=== PATIENT | female | born 1940 | race Caucasian/White ===

== ENCOUNTER → 2017-12-01 11:30 | Outpatient (CLI) | payer MEDICARE, BC, SELFPAY ==
--- NOTE | 2017-12-01 | DI.MRI.S_ITS ---
BREAST MRI OF BOTH BREASTS - POST LUMPECTOMY: 12/01/2017 CLINICAL: Left breast cancer. INDICATIONS: LEFT BREAST CANCER TECHNIQUE: The patient was placed prone in a dedicated breast imaging coil. Precontrast axial STIR and 3D FLASH without fat saturation sequences were obtained. Both before and after bolus injection of contrast, sequential 1-minute axial 3D FLASH with fat saturation sequences for 3 time points, with subtraction images and maximum intensity projections (MIP's) generated. Delayed sagittal FLASH images with fat saturation were also obtained. Computer-aided detection, including computer algorithm analysis of MRI image data for lesion detection and characterization, pharmacokinetic analysis, with further physician review for interpretation, was performed. COMPARISON: [facility], , MM DIAGNOSTIC MAMMO BILAT 2D, 11/11/2015, 9:25. [facility], , US LEFT BREAST, 11/08/2017, 15:33. [facility], MM DIAGNOSTIC MAMMO BILAT 2D, 11/07/2017, 13:12. [facility], WIRE LOCALIZATION EACH LESION, 11/08/2012, 7:57. FINDINGS: Image quality: Excellent. There is minimal background parenchymal enhancement. Right breast: Patient is status post lumpectomy at 9:00 within the right breast at an anterior depth. Fat necrosis is present within the operative bed. There is partial enhancement along the superior margin of the operative bed also consistent with fat necrosis. No suspicious enhancement or mass lesions. Skin thickening and increased trabeculation is noted within the right breast presumably secondary to radiation changes. Left breast: Surgical clips are present within the left breast at 11:00. A T2 hyperintense 6 x 5 mm circumscribed cystic lesion is present within the left breast at 4:00 at a middle depth. This demonstrates trace enhancement on the postcontrast images. This corresponds with mammography and sonographic findings. Miscellaneous: No axillary adenopathy. IMPRESSION: BENIGN 1. Bilateral postsurgical change as above. 2. Subcentimeter left fibroadenoma which corresponds with the mammographic and sonographic findings. 3. No evidence for malignancy. A 1 year screening mammogram is recommended. This exam was interpreted at Station ID: [id number]. Electronically Signed By: Roxy patterson/:12/01/2017 17:19:36 letter sent: Normal Exam ACR BI-RADS Category 2: Benign Finding(s) 5580K
[2017-12-01 12:07] LABS: Estimated Glomerular Filt Rate 39.7 mL/min (>60)
== END ==
PROVIDERS: PCP Family Medicine; Visit Provider Surgery
DX: D24.2 Benign neoplasm of left breast (principal); Z85.3 Personal history of malignant neoplasm of breast
CPT/HCPCS: 36415; 82565; A9579; C8908

== ENCOUNTER → 2018-01-08 08:49 | Outpatient (CLI) | payer MEDICARE, BC, SELFPAY ==
--- NOTE | 2018-01-08 | PATH_ITS ---
[facility] Accession Number: [id number] . 01 Material submitted: . LEFT BREAST . 01 Clinical history: . MASS 4:00 3CM FN . 02 Diagnosis: Biopsy Left Breast: Benign breast tissue with complex epithelial cyst, negative for atypia. MRV/01/10/2018 . 02 Electronically signed: . Dmitriy Marcus MD, Pathologist NPI- [id number] . 01 Gross description: . Received in formalin, labeled BX breast perc w vac device, are multiple fragments of yellow adipose tissue (2.5 x 2.3 x 0.2 cm in aggregate. Entirely submitted in cassette A1. Note: Approximate total fixation time in formalin-36 hours 30 minutes, calculated using a collection date of 01/08/2018 with a time in fixative of 1059. ([id number]) /MRV . 02 Pathologist provided ICD-10: N60.02 . 02 CPT . 975197 Performed at: 01 [facility] [address] [facility] [place], [place], [place] [id number] MD Lucian Del Rosario MD Phone: [phone] Performed at: 02 [facility] [address] [place], [place] [id number] MD Jarrod Garcia MD Phone: [phone]
--- NOTE | 2018-01-08 | DI.MG.S_ITS ---
UNILATERAL LEFT DIGITAL DIAGNOSTIC MAMMOGRAM POST-NEEDLE BIOPSY: 01/08/2018 CLINICAL: Post clip placement. Personal history of breast cancer. Comparison is made to exams dated: 11/07/2017 mammogram, 11/14/2016 mammogram, and 11/11/2015 mammogram - [facility]. The tissue of the left breast is predominantly fatty. There is a marker clip in the appropriate position in the left breast at 4 o'clock anterior depth. This marker clip placement is at biopsy site. IMPRESSION: POST PROCEDURE MAMMOGRAM FOR MARKER PLACEMENT There was a successful marker clip placement in the left breast anterior depth. This exam was interpreted at Station ID: [id number]. NOTE: For mammograms, a report in lay terms will be sent to the patient. Approximately 15% of breast malignancies will not be visualized mammographically. In the management of a palpable breast mass, a negative mammogram must not discourage biopsy of a clinically suspicious lesion. Electronically Signed By: Delano lovelace/kim:01/10/2018 11:36:04 ACR BI-RADS Category Post-procedure mammogram for marker placement
--- NOTE | 2018-01-08 08:51 | DI.US.S_ITS ---
PROCEDURE: US BX BREAST PERC W VAC DEVICE COMPARISON: None. INDICATIONS: LEFT BREAST MASS FINDINGS: Preprocedural ultrasound shows a small anechoic area with through acoustic enhancement at 4:00 position of left breast 3 cm from the nipple line with no significant tumor vascularity. Outer portion of left breast was prepped and draped in standard sterile fashion. Superficial and deep left breast tissue was anesthetized with 1% lidocaine. Under ultrasound guidance, vacuum assisted biopsy of the above-mentioned anechoic lesion was performed. 6 passes were done through the lesion. Specimen was sent to pathology for evaluation. A marker clip was placed at the site of the biopsy after the procedure. Hemostasis was achieved. Post procedural mammogram shows marker clip in the outer and slightly lower quadrant of left breast. Patient was discharged home without immediate complication. IMPRESSION: Technically successful ultrasound-guided left breast biopsy. Dictated by: Delano Prado M.D. on 01/08/2018 at 12:33 Approved by: Delano Prado M.D. on 01/08/2018 at 12:40
== END ==
PROVIDERS: PCP Obstetrics & Gynecology; Visit Provider Surgery
DX: R92.8 Other abnormal and inconclusive findings on diagnostic imaging of breast (principal); N60.02 Solitary cyst of left breast
CPT/HCPCS: 19083; 77065; 88305

== ENCOUNTER → 2018-11-12 08:38 | Outpatient (CLI) | payer MEDICARE, BC, SELFPAY ==
--- NOTE | 2018-11-12 08:39 | DI.RAD.S_ITS ---
This blank DEXA report has been sent in error by the PACS system. The correct and complete report will be forthcoming in 1-2 days. Thank you for your patience and understanding. Dictated by: Manuel Morris M.D. on 11/12/2018 at 9:53 Approved by: Riccardo Ambrose M.D. on 03/19/2019 at 9:36
== END ==
PROVIDERS: PCP Student in an Organized Health Care Education/Training Program; Visit Provider Student in an Organized Health Care Education/Training Program
DX: M85.852 Other specified disorders of bone density and structure, left thigh (principal); M06.9 Rheumatoid arthritis, unspecified; Z78.0 Asymptomatic menopausal state; Z82.62 Family history of osteoporosis; Z85.3 Personal history of malignant neoplasm of breast
CPT/HCPCS: 77080

== ENCOUNTER → 2019-01-01 10:43 | Outpatient (CLI) | payer MEDICARE, BC, SELFPAY ==
--- NOTE | 2019-01-01 10:46 | DI.MG.S_ITS ---
BILATERAL DIGITAL SCREENING MAMMOGRAM 3D/2D WITH CAD: 01/01/2019 CLINICAL: Routine screening. Personal history of right breast cancer. Family history of breast cancer. Comparison is made to exams dated: 01/08/2018 mammogram - [facility], 11/07/2017 mammogram, and 11/14/2016 mammogram - [facility]. The tissue of both breasts is predominantly fatty. Current study was also evaluated with a Computer Aided Detection (CAD) system. There are benign post operative findings in both breasts. There also are benign calcifications in the right breast. No significant masses, calcifications, or other findings are seen in either breast. There has been no significant interval change. IMPRESSION: There is no mammographic evidence of malignancy. A 1 year screening mammogram is recommended. This exam was interpreted at Station ID: [id number]. NOTE: For mammograms, a report in lay terms will be sent to the patient. Approximately 15% of breast malignancies will not be visualized mammographically. In the management of a palpable breast mass, a negative mammogram must not discourage biopsy of a clinically suspicious lesion. Electronically Signed By: Roxy patterson/kim:01/01/2019 12:29:47 letter sent: Normal Exam ACR BI-RADS Category 2: Benign Finding(s) [id number]
== END ==
PROVIDERS: Family Provider Student in an Organized Health Care Education/Training Program; PCP Student in an Organized Health Care Education/Training Program; Visit Provider Obstetrics & Gynecology
DX: Z12.31 Encounter for screening mammogram for malignant neoplasm of breast (principal); Z85.3 Personal history of malignant neoplasm of breast; Z80.3 Family history of malignant neoplasm of breast
CPT/HCPCS: 77063; 77067

== ENCOUNTER → 2019-11-20 12:20 | Outpatient (CLI) | payer MEDICARE, BC, SELFPAY | PROVIDERS: Family Provider Student in an Organized Health Care Education/Training Program; PCP Student in an Organized Health Care Education/Training Program; Referring Provider Student in an Organized Health Care Education/Training Program; Visit Provider Student in an Organized Health Care Education/Training Program | DX: M85.852 Other specified disorders of bone density and structure, left thigh (principal); Z78.0 Asymptomatic menopausal state; M06.9 Rheumatoid arthritis, unspecified; Z85.3 Personal history of malignant neoplasm of breast | CPT/HCPCS: 77080 ==

== ENCOUNTER → 2020-01-17 10:28 | Outpatient (CLI) | payer MEDICARE, BC, SELFPAY ==
--- NOTE | 2020-01-17 | DI.MG.S_ITS ---
BILATERAL DIGITAL SCREENING MAMMOGRAM 3D/2D WITH CAD POST LUMPECTOMY: 01/17/2020 CLINICAL: Routine screening. Personal history of right breast cancer. Comparison is made to exams dated: 01/01/2019 mammogram, 12/01/2017 breast MRI [facility], 11/07/2017 mammogram, and 11/14/2016 mammogram - [facility]. The tissue of both breasts is predominantly fatty. Current study was also evaluated with a Computer Aided Detection (CAD) system. There are benign calcifications in the right breast. There also are benign post operative findings in both breasts. No significant masses, calcifications, or other findings are seen in either breast. There has been no significant interval change. IMPRESSION: BENIGN There is no mammographic evidence of malignancy. A 1 year screening mammogram is recommended. This exam was interpreted at Station ID: [id number]. NOTE: For mammograms, a report in lay terms will be sent to the patient. Approximately 15% of breast malignancies will not be visualized mammographically. In the management of a palpable breast mass, a negative mammogram must not discourage biopsy of a clinically suspicious lesion. Electronically Signed By: Sudheer stover/kim:01/17/2020 13:04:03 copy to: Ketty Condon letter sent: Normal Exam ACR BI-RADS Category 2: Benign Finding(s) [id number]
--- NOTE | 2020-01-17 11:45 | DI.RAD.S_ITS ---
PROCEDURE: XR KNEE LT 3V INDICATIONS: Knee pain TECHNIQUE: There has been [id number] progression of previously present moderately severe degenerative knee joint osteoarthritis seen on the frontal view as osteophytic spurring and height reduction at the medial and and lateral compartments. No effusion or loose body is seen. The area of trabecular thickening beneath the lateral femoral condyle within the tibial plateau is stable over time views of the knee were acquired. COMPARISON: [facility], , KNEE 3V LEFT, 06/17/2010, 10:06. FINDINGS: Bones: No fractures or dislocations. No suspicious bony lesions. Soft tissues: No joint effusion. No suspicious soft tissue calcifications. IMPRESSION: Mild interval worsening of chronic degenerative osteoarthritis at the medial and lateral compartments of the left knee, no acute trauma found. Dictated by: Riccardo Ambrose M.D. on 01/17/2020 at 13:13 Approved by: Riccardo Ambrose M.D. on 01/17/2020 at 13:15
== END ==
PROVIDERS: Family Provider Student in an Organized Health Care Education/Training Program; PCP Student in an Organized Health Care Education/Training Program; Referring Provider Student in an Organized Health Care Education/Training Program; Visit Provider Student in an Organized Health Care Education/Training Program
DX: Z12.31 Encounter for screening mammogram for malignant neoplasm of breast (principal); Z85.3 Personal history of malignant neoplasm of breast; M25.562 Pain in left knee; M17.12 Unilateral primary osteoarthritis, left knee
CPT/HCPCS: 73562; 77063; 77067

== ENCOUNTER → 2021-01-07 15:40 | Outpatient (CLI) | payer MEDICARE, BC, SELFPAY ==
[2021-01-07 16:16] LABS: Add Manual Diff / Slide Review NO; Basophils Absolute Auto 100 /uL (0-100); Basophils Percent Auto 0.7 % (0-2); Eosinophils Absolute Auto 100 /uL (0-450); Hematocrit 32.6 % (36-46); Hemoglobin 10.7 g/dL (12.0-16.0); Lymphocytes Absolute Auto 1900 /uL (1100-4500); Lymphocytes Percent Auto 23.8 % (25-40); Mean Corpuscular HGB Conc 32.7 % (30-36); Mean Corpuscular Hemoglobin 31.9 PG (26-34); Mean Corpuscular Volume 97.5 fL (80-100); Monocytes Absolute Auto 500 /uL (0-900); Monocytes Percent Auto 6.8 % (3-14); Neutrophils Absolute Auto 5300 /uL (1500-7000); Neutrophils Percent Auto 67.7 % (50-75); Platelet Count 230 X10^3/uL (150-400); Red Blood Cell Count 3.34 X10^6/uL (4.0-5.2); Red Cell Distribution Width 14.2 % (11.6-14.8); White Blood Cell Count 7.8 X10^3/uL (4.5-11.0)
[2021-01-07 16:25] LABS: Alanine Aminotransferase 15 IU/L (<35); Albumin 4.8 g/dL (3.5-5.0); Albumin Globulin Ratio 1.8 (1.0-2.8); Alkaline Phosphatase 50 U/L (38-126); Aspartate Aminotransferase 27 IU/L (14-36); BUN Creatinine Ratio 22.8 (6-22); Bilirubin Total 0.2 mg/dL (0.2-1.3); Blood Urea Nitrogen 36 mg/dL (7-17); Calcium 9.5 mg/dL (8.4-10.2); Carbon Dioxide 20 mmol/L (22-32); Chloride 108 mmol/L (98-107); Estimated Glomerular Filt Rate 31.5 mL/min (>60); Globulin 2.6 g/dL (1.7-4.1); Glucose 96 mg/dL (80-110); HEMOLYSIS < 15 (0-50); Potassium 4.4 mmol/L (3.4-5.1); Sodium 138 mmol/L (137-145); Total Protein 7.4 g/dL (6.3-8.2)
[2021-01-07 16:42] LABS: Vitamin D 25 Hydroxy (D3) 116 ng/mL (30.0-100.0)
[2021-01-07 16:57] LABS: TSH w/ Reflex to FT4 0.89 uIU/mL (0.47-4.68)
[2021-01-07 17:14] LABS: Vitamin B12 818 pg/mL (239-931)
== END ==
PROVIDERS: Family Provider Student in an Organized Health Care Education/Training Program; PCP Student in an Organized Health Care Education/Training Program; Referring Provider Student in an Organized Health Care Education/Training Program; Visit Provider Student in an Organized Health Care Education/Training Program
DX: M81.0 Age-related osteoporosis without current pathological fracture (principal); E03.9 Hypothyroidism, unspecified; I10 Essential (primary) hypertension; R41.82 Altered mental status, unspecified
CPT/HCPCS: 36415; 80053; 82306; 82607; 84443; 85025

== ENCOUNTER → 2022-01-19 10:02 | Outpatient (CLI) | payer MEDICARE, BC, SELFPAY ==
[2022-01-19 11:16] LABS: Blood Urea Nitrogen 25 mg/dL (7-17); Calcium 9.3 mg/dL (8.4-10.2); Carbon Dioxide 24 mmol/L (22-32); Chloride 105 mmol/L (98-107); Cholesterol 185 mg/dL (140-199); Estimated Glomerular Filt Rate 38 mL/min (>60); Glucose 101 mg/dL (80-110); HDL Cholesterol 59 mg/dL (40-60); HEMOLYSIS < 15 (0-50); LDL Cholesterol Calculated 105 mg/dL (<100); Potassium 4.7 mmol/L (3.4-5.1); Sodium 138 mmol/L (137-145); Triglycerides 105 mg/dL (35-150); Uric Acid 4.3 mg/dL (2.5-6.2)
[2022-01-19 11:33] LABS: Vitamin D 25 Hydroxy (D3) 86.5 ng/mL (30.0-100.0)
[2022-01-19 11:52] LABS: TSH w/ Reflex to FT4 0.84 uIU/mL (0.47-4.68)
== END ==
PROVIDERS: Family Provider Student in an Organized Health Care Education/Training Program; PCP Student in an Organized Health Care Education/Training Program; Referring Provider Student in an Organized Health Care Education/Training Program; Visit Provider Student in an Organized Health Care Education/Training Program
DX: E03.9 Hypothyroidism, unspecified (principal); E78.5 Hyperlipidemia, unspecified; I10 Essential (primary) hypertension; N18.32 Chronic kidney disease, stage 3b; M10.9 Gout, unspecified
CPT/HCPCS: 36415; 80048; 80061; 82306; 84443; 84550

== ENCOUNTER → 2022-01-20 12:13 | Outpatient (CLI) | payer MEDICARE, BC, SELFPAY | PROVIDERS: Family Provider Student in an Organized Health Care Education/Training Program; PCP Student in an Organized Health Care Education/Training Program; Referring Provider Student in an Organized Health Care Education/Training Program; Visit Provider Student in an Organized Health Care Education/Training Program | DX: Z78.0 Asymptomatic menopausal state (principal); M85.89 Other specified disorders of bone density and structure, multiple sites | CPT/HCPCS: 77080 ==

== ENCOUNTER 2022-02-19 08:58 | Emergency (ER) | payer MEDICARE, BC, SELFPAY ==
[2022-02-19 09:05] VITALS: BP 186/84; PULSE 83; RESP 18; TEMP 36.6; O2SAT 98
--- NOTE | 2022-02-19 09:06 | DI.RAD.S_ITS ---
PROCEDURE: XR CHEST 2V INDICATIONS: upper respiratory symptoms TECHNIQUE: 2 views of the chest were acquired. COMPARISON: None. FINDINGS: Surgical changes and devices: Surgical clips project over the left breast Lungs and pleura: Lungs are clear. No pleural effusions or pneumothorax. Mediastinum: Mediastinal contours are normal. Heart size is normal. Bones and chest wall: Kyphosis and spurring in the lower thoracic spine. No suspicious bony abnormalities. Soft tissues appear unremarkable. IMPRESSION: 1. No acute cardiopulmonary disease. 2. Thoracic kyphosis and degenerative change. Dictated by: Yue Aguilar M.D. on 02/19/2022 at 8:46 Approved by: Yue Aguilar M.D. on 02/19/2022 at 8:47
--- NOTE | 2022-02-19 09:07 | ED.GENADULT ---
HPI - General Adult General Chief complaint: Upper Respiratory Symptoms Stated complaint: Cough,Head congestion, Time Seen by Provider: 02/19/22 09:01 History of Present Illness HPI narrative: 81-year-old female nonsmoker with noncontributory medical history presents with a chief complaint of upwards of 2 weeks of nasal congestion, runny nose and harsh cough. She states that deep breath seems to elicit cough. She has not been bringing up any sputum and denies any significant shortness of breath. She has had no measurable fever or chills. She denies nausea, vomiting or diarrhea. Her is currently in the hospital and she is spent much time here and potentially around other ill people. She denies recent travel. Related Data Home Medications Medication Instructions Recorded Confirmed CALCIUM CARBONATE (#SUPER CALCIUM) 1,200 mg PO Q DAY ##0 01/07/11 02/08/22 Previous Rx's Medication Instructions Recorded alendronate 70 mg tablet 70 mg PO QWEEK #12 tabs 01/11/21 clobetasol 0.05 % lotion 1 applic topical BID PRN rash #59 05/24/21 mL lovastatin 20 mg tablet 20 mg PO HS #90 tabs 09/28/21 estradiol 10 mcg vaginal tablet See Rx Instructions .Route 11/16/21 .COMPLEX #24 tabs [place] Thyroid 60 mg tablet 60 mg PO QDAY #90 tabs 12/10/21 (thyroid (pork)) diltiazem HCl 180 mg 180 mg PO BID #180 tabs 01/19/22 capsule,extended release 24 hr olmesartan 20 mg tablet (Benicar) 20 mg PO QDAY #90 tabs 01/19/22 allopurinol 100 mg tablet 100 mg PO BID #180 tabs 01/25/22 cholecalciferol (vitamin D3) 50 4,000 unit PO DAILY #180 caps 01/31/22 mcg (2,000 unit) capsule hydroxyzine pamoate 25 mg capsule 25 - 50 mg PO BEDTIME allergy 01/31/22 (Vistaril) symptoms #120 caps conjugated estrogens 0.625 mg/gram 0.625 mg vaginal DAILY #30 grams 02/08/22 vaginal cream oxyquinoline 0.025 %-sodium lauryl 1 ea vaginal .weekly #113.4 grams 02/08/22 sulfate 0.01 % vaginal gel Allergies Allergy/AdvReac Type Severity Reaction Status Date / Time acetaminophen [ACETAMINOPHEN] Allergy Mild GI UPSET Verified 02/08/22 08:23 codeine [CODEINE] Allergy Mild PSYCHOTIC/UPSET Verified 02/08/22 08:23 GI fluticasone Allergy Mild Rash Verified 02/08/22 08:23 hydrochlorothiazide Allergy Mild ITCHY Verified 02/08/22 08:23 [HYDROCHLOROTHIAZIDE] ibuprofen [IBUPROFEN] Allergy Mild GI UPSET Verified 02/08/22 08:23 lisinopril [LISINOPRIL] Allergy Mild COUGH Verified 02/08/22 08:23 metoprolol [METOPROLOL] Allergy Mild REBOUND HTN Verified 02/08/22 08:23 olmesartan [OLMESARTAN] Allergy Mild SINUS ISSUE Verified 02/08/22 08:23 talc [TALC] Allergy Mild RASH AND Verified 02/08/22 08:23 SKIN PEELING cephalexin AdvReac Mild Makes me Verified 02/08/22 08:23 sick somehow Review of Systems Review of Systems Narrative: GENERAL: Denies chills, fatigue, malaise, fever, sweats. HEENT: See HPI RESPIRATORY: See HPI CARDIOVASCULAR: Denies chest pain, palpitations, orthopnea, edema, GASTROINTESTINAL: Denies nausea, vomiting, abdominal pain, diarrhea, constipation, melena. : Denies dysuria, frequency, incontinence, hematuria, urinary retention. MUSCULOSKELETAL: denies weakness, joint pain, or bony pain SKIN: Denies rash, skin lesions, or other NEUROLOGIC: Denies weakness, headache, numbness, change in speech, confusion, seizures, incoordination. PSYCHIATRIC: No concerning psychosocial issues. 12 point review of systems is negative except for those stated above Patient History Medical History Anemia Breast cancer, right breast (2012) Hayfever HTN (hypertension) Hyperlipidemia Hypothyroidism Osteoporosis Psoriasis Psoriasis (11/25/10) Renal insufficiency Rosacea Rosacea (11/25/10) Skin cancer Surgical History Status post tonsillectomy and adenoidectomy (1946) Status post tubal ligation (1974) Status post vaginal hysterectomy (01/01/14) Family History Father Heart disease Family/Other Cancer Social History Smoking Status: Never smoker Smoking Status: Never smoker Exam Narrative Exam Narrative: GENERAL: [81] year old patient appears stated age. Well-developed patient, in mild distress. HEAD: Atraumatic. Normocephalic. EYES: Pupils equal round and reactive. Extraocular motions intact. No scleral icterus. No injection or drainage. ENT: Clear nasal drainage bilaterally, moist mucous membranes. Clear postnasal drip. Airway patent. NECK: Trachea midline. Non tender CARDIOVASCULAR: Regular rate and rhythm without murmurs, gallops, or rubs. RESPIRATORY: Harsh sounding breath sounds, deep breath illicits cough, no tachypnea or hypoxemia. No rales, rhonchi GASTROINTESTINAL: Abdomen soft, non-tender, nondistended. EXTREMITIES: No edema or joint tenderness. BACK: Nontender without deformity or crepitance. No flank tenderness. NEURO: AOx3. SKIN: No rash or erythema of visible areas Initial Vital Signs Initial Vital Signs: Vital Signs Temperature 97.9 F 02/19/22 09:05 Pulse Rate 83 02/19/22 09:05 Respiratory Rate 18 02/19/22 09:05 Blood Pressure 186/84 H 02/19/22 09:05 Pulse Oximetry 98 02/19/22 09:05 Oxygen Delivery Method 02/19/22 09:05 Course Orders Ordered: ED Orders 02/19/22 09:06 Chest [XR chest 2V] Stat 02/19/22 09:10 COVID19 -Nasal RAPID/Pre-Proc Stat Discontinued Medications Albuterol/Ipratropium (Albuterol/Ipratropium 3 Ml Ampul) 3 ml INH NOW ONE Stop: 02/19/22 09:07 Last Admin: 02/19/22 10:06 Dose: 3 ml Documented By: FRANCIA Vital Signs Vital signs: Vital Signs - 8 hr 02/19/22 09:05 02/19/22 10:07 Temperature 97.9 F Pulse Rate 83 64 Respiratory Rate 18 18 Blood Pressure 186/84 H Pulse Oximetry 98 97 Oxygen Delivery Method Room Air Room Air Medical Decision Making Lab Data Labs: Lab Results 02/19/22 Range/Units 09:10 SARS-CoV-2 (PCR) Negative (Negative) MDM Narrative Medical decision making narrative: Patient has very mild symptoms and reassuring history and physical exam. Chest x-ray has no significant findings and her COVID is negative. She does have a bronchospastic element to her symptoms and therefore we attempted a breathing treatment but it did not seem to help at all. Most likely some other viral upper respiratory infection. I recommended antihistamines in addition to the [id number] medication she is taking. Return precautions discussed and questions answered to her apparent satisfaction Discharge Plan Departure Patient Disposition: Home Clinical Impression: Upper respiratory infection Instructions: DI for Viral Upper Respiratory Infection -- Adult Activity Restrictions/Additional Instructions: *You have been diagnosed with [viral upper respiratory infection. Your COVID swab was negative, chest x-ray showed no sign pneumonia. Your history, physical exam and these findings are reassuring and there is no indication for antibiotic or other more significant workup at this time. Please continue to take [id number]-igskimf cough cold and flu medications to help with your symptoms. After looking at what you have been taking it seems that adding an antihistamines such as Bertha, Benadryl or Zyrtec would help to dry the secretions which are likely causing many of your symptoms *What to do: *Please continue to take your regular medications as directed. [ ] New medication prescriptions sent to your pharmacy: [ ] [ ] New medication written as a paper prescription [ x] No new medications given *Please follow up with your primary care provider in 2-3 days, call for an appointment. Let them know you were seen in the Emergency Department and that we ask that you be seen in follow up. We will electronically transmit a record of today's note if your PCP is in our system *Return to Emergency Department if you should have any new, worsening or concerning symptoms, such as [fever greater than 101 F, shaking chills, worsening pain, persistent vomiting or other bothersome symptoms] Prescriptions: No Action CALCIUM CARBONATE (#SUPER CALCIUM) 1,200 mg PO Q DAY Qty: 0 alendronate 70 mg tablet 70 mg PO QWEEK Qty: 12 3RF clobetasol 0.05 % lotion 1 applic TOP BID PRN (Reason: rash) Qty: 59 5RF lovastatin 20 mg tablet 20 mg PO HS Qty: 90 2RF estradiol 10 mcg tablet See Rx Instructions .ROUTE .COMPLEX Qty: 24 3RF Dose Instruction: INSERT 1 TABLET VAGINALLY 2TIMES A WEEK Rx Instructions: INSERT 1 TABLET VAGINALLY 2TIMES A WEEK thyroid (pork) [[place] Thyroid] 60 mg tablet 60 mg PO QDAY Qty: 90 0RF allopurinol 100 mg tablet 100 mg PO BID Qty: 180 3RF cholecalciferol (vitamin D3) 50 mcg (2,000 unit) capsule 4,000 unit PO DAILY Qty: 180 3RF hydroxyzine pamoate [Vistaril] 25 mg capsule 25 - 50 mg PO BEDTIME Qty: 120 3RF conjugated estrogens 0.625 mg/gram cream 0.625 mg vaginal DAILY Qty: 30 3RF Rx Instructions: Use 0.5 gm once weekly oxyquinoline-sod.lauryl sulfat 0.025-0.01 % gel 1 ea vaginal .weekly Qty: 113.4 3RF Rx Instructions: 1/2 applicator once per week diltiazem HCl 180 mg capsule,extended release 24hr 180 mg PO BID Qty: 180 1RF olmesartan [Benicar] 20 mg tablet 20 mg PO QDAY Qty: 90 3RF Referrals: Rey Meyer MD [Primary Care Provider] -
[2022-02-19 09:33] LABS: COVID19 -Nasal RAPID Negative (Negative)
[2022-02-19] MEDS: ALBUTEROL/IPRATROPIUM 3 ML AMPUL INH (10:06)
[2022-02-19 10:07] VITALS: PULSE 64; RESP 18; O2SAT 97
== END 2022-02-19 10:46 | disposition home or self-care (01) ==
PROVIDERS: Emergency Provider Emergency Medicine; Family Provider Student in an Organized Health Care Education/Training Program; PCP Student in an Organized Health Care Education/Training Program; Referring Provider Emergency Medicine
DX: J06.9 Acute upper respiratory infection, unspecified (principal); Z20.822 Contact with and (suspected) exposure to COVID-19
CPT/HCPCS: 71046; 87635; 94640; 99283; C9803